=== PATIENT | female | born 1965 | race Caucasian/White ===

== ENCOUNTER 2017-06-11 12:29 | Day surgery (SDC) | payer BC ==
[2017-06-11] MEDS ORDERED: PROPOFOL 500 MG/50 ML EMU IV ONE (13:05)
[2017-06-11] MEDS ORDERED: FENTANYL 100MCG/2ML SOL ONE (13:05)
[2017-06-11 14:04] VITALS: O2SAT 100
[2017-06-11 14:37] VITALS: BP 132/80; PULSE 54; RESP 20; TEMP 97.9
== END 2017-06-11 14:50 | disposition home or self-care (01) ==
LOC: EDBD → SURG 12:29
PROVIDERS: ATTEND Surgery
DX: Z12.11 Encounter for screening for malignant neoplasm of colon (principal); D12.2 Benign neoplasm of ascending colon; D12.5 Benign neoplasm of sigmoid colon
CPT/HCPCS: 45385; 99001; J2001; J2704; J3010

== ENCOUNTER 2019-03-10 12:00 | Day surgery (SDC) | payer BC ==
[2019-03-10] MEDS ORDERED: LIDOCAINE HCL 1% MPF 30 SOL ONE (12:45)
[2019-03-10] MEDS ORDERED: BUPIVACAINE HCL 0.5% MPF 10 ML SOL ONE (12:45)
[2019-03-10 13:02] VITALS: O2SAT 98
[2019-03-10 13:13] VITALS: BP 130/79; PULSE 69; RESP 14; TEMP 98.5
== END 2019-03-10 13:30 | disposition home or self-care (01) ==
LOC: SURG 12:00
PROVIDERS: ATTEND Nurse Anesthetist, Certified Registered
DX: M12.88 Other specific arthropathies, not elsewhere classified, other specified site (principal)
CPT/HCPCS: J2001

== ENCOUNTER 2019-05-12 14:14 | Day surgery (SDC) | payer BC ==
[2019-05-12] MEDS ORDERED: BUPIVACAINE HCL 0.25% MPF 30 ML SOL INFIL ONE (15:03)
[2019-05-12] MEDS: TRIAMCINOLONE ACETONIDE 40 MG/ML SUS ONE ×2 (15:13→15:19)
[2019-05-12 15:19] VITALS: RESP 16
[2019-05-12 15:31] VITALS: BP 122/74; PULSE 77; O2SAT 99
[2019-05-12 15:51] VITALS: TEMP 100.3
== END 2019-05-12 15:51 | disposition home or self-care (01) ==
LOC: SURG 14:14
PROVIDERS: ATTEND Nurse Anesthetist, Certified Registered
DX: M12.9 Arthropathy, unspecified (principal)
CPT/HCPCS: J3300

== ENCOUNTER 2019-08-03 08:34 | Day surgery (SDC) | payer BC | END 2019-08-03 10:24 | disposition home or self-care (01) | LOC: SURG 08:34 ==